=== PATIENT | female | born 1995 | race Caucasian/White ===

== ENCOUNTER 2019-04-21 15:10 | Emergency (ER) | payer SELFPAY ==
[2019-04-21 15:23] VITALS: BP 123/76
[2019-04-21] MEDS ORDERED: SULFAMETHOXAZOLE/TRIMETHOPRIM 800-160 MG TABLET PO ONE (16:45)
[2019-04-21] MEDS ORDERED: CEPHALEXIN 500 MG CAPSULE PO ONE (16:45)
--- NOTE | 2019-04-21 16:50 | ER Document Report ---
HPI - HPI Patient complains to provider of: skin infection Time Seen by Provider: 04/21/19 16:07 Onset: Last week Onset/Duration: Persistent Quality of pain: Achy Pain Level: 3 Context: Patient presents complaining of 2 tender areas that are erythematous and swollen. Patient denies any injury. Patient denies any fever or history of MRSA. Patient does report a history of IV drug abuse although denies injecting in the areas where she has the redness and swelling. Associated Symptoms: denies: Fever Exacerbated by: Movement Relieved by: Denies Similar symptoms previously: No Recently seen / treated by doctor: No - ROS ROS below otherwise negative: Yes Systems Reviewed and Negative: Yes All other systems reviewed and negative - CONSTITUTIONAL Constitutional: DENIES: Fever, Chills - NEURO Neurology: DENIES: Headache - CARDIOVASCULAR Cardiovascular: DENIES: Chest pain - RESPIRATORY Respiratory: DENIES: Trouble Breathing, Coughing - GASTROINTESTINAL Gastrointestinal: DENIES: Nausea - REPRODUCTIVE Reproductive: DENIES: : - MUSCULOSKELETAL Musculoskeletal: REPORTS: Extremity pain, Swelling - DERM Skin Color: Erythema Past Medical History - General Information source: Patient - Social History Smoking Status: Current Every Day Smoker Smoking Education Provided: Yes Frequency of alcohol use: Occasional Drug Abuse: Other - Methamphetamine Occupation: none Family History: Reviewed & Not Pertinent - Medical History Medical History: Negative Surgical Hx: Negative - Immunizations Immunizations up to date: Yes Vertical Provider Document - CONSTITUTIONAL Agree With Documented VS: Yes Exam Limitations: No Limitations General Appearance: WD/WN, No Apparent Distress - INFECTION CONTROL TRAVEL OUTSIDE OF THE [place] IN LAST 30 DAYS: No - HEENT HEENT: Atraumatic, Normocephalic - NECK Neck: Normal Inspection, Supple - RESPIRATORY Respiratory: Breath Sounds Normal, No Respiratory Distress - CARDIOVASCULAR Cardiovascular: Regular Rhythm, No Murmur, Tachycardia - MUSCULOSKELETAL/EXTREMETIES Musculoskeletal/Extremeties: MAEW - NEURO Level of Consciousness: Awake, Alert - anxious - DERM Integumentary: Warm, Dry Notes: Patient with pustule with surrounding erythema to right antecubital area and over left elbow. Areas worrisome for developing abscess. No joint involvement. Patient with range of motion to bilateral upper extremities. Course - Vital Signs Vital signs: Temp Pulse Resp BP Pulse Ox 98.1 F 123 H 18 123/76 97 04/21/19 15:20 04/21/19 15:20 04/21/19 15:20 04/21/19 15:20 04/21/19 15:20 Procedures - Incision and Drainage Left Elbow Type: Simple I&D procedure: Betadine prep applied Incision Method: Incision made with needle Amount/type of drainage: Scant purulent drainage removed from pustule Right Arm Type: Simple I&D procedure: Betadine prep applied Incision Method: Incision made with needle Amount/type of drainage: Scant drainage from pustule to right antecubital area Discharge - Discharge Clinical Impression: Pustule Cellulitis Qualifiers: Site of cellulitis: extremity Site of cellulitis of extremity: upper extremity Laterality: unspecified laterality Qualified Code(s): L03.119 - Cellulitis of unspecified part of limb Condition: Stable Disposition: HOME, SELF-CARE Instructions: Abscess ([facility]), Cephalexin ([facility]), Post Incision and Drainage, Trimethoprim-Sulfa ([facility]) Additional Instructions: Return immediately for any new or worsening symptoms Followup with your primary care provider, call tomorrow to make a followup appointment Stop shooting up drugs as this can lead to skin infections as well as other risks such as overdose and . Warm compresses to area multiple times each day. Prescriptions: Cephalexin Monohydrate [Keflex 500 mg Capsule] 500 mg PO Q6H 5 Days capsule Sulfamethoxazole/Trimethoprim [Bactrim Ds Tablet] 1 each PO BID #20 tablet Forms: Smoking Cessation Education Referrals: [facility] [Provider Group] - Follow up as needed
== END 2019-04-21 17:03 | disposition home or self-care (01) ==
LOC: ER 15:10
DX: L03.119 Cellulitis of unspecified part of limb (principal); L08.9 Local infection of the skin and subcutaneous tissue, unspecified; F17.200 Nicotine dependence, unspecified, uncomplicated; F15.10 Other stimulant abuse, uncomplicated
CPT/HCPCS: 99283